=== PATIENT | female | born 1965 | race Caucasian/White ===

== ENCOUNTER 2016-11-17 04:41 | Emergency (ER) | payer OTHER ==
--- NOTE | ~2016-11-17 | CR72 ---
[facility] A Service of [facility] & [facility] RADIOLOGY TEXT RESULTS PATIENT: LILY CREWS LOCATION: [facility] : 65 UNIT #: [id number] AGE: [address]: BENJI REBOLLAR APRN SEX: F ORDER DR: [id number] [facility] [address] [place], [place] [address] [id number] E MR#: [id number] Acc #: [id number] NAME: LILY CREWS. : 1965 SEX: F STUDY DATE/TIME: 11/17/2016 4:12 UNIT: [facility] ROOM: STUDY DESCRIPTION: CR Chest Single View Portable Attending Physician: Benji Rebollar Aprn Ordering Physician: Benji Rebollar Aprn Primary Care Physician: No Primary Care Physician MEDICAL IMAGING REPORT This report is preliminary unless electronic signature is present EXAM AP view of the chest. COMPARISON April 18, 2015 and October 24, 2013. INDICATION 50-year-old female with cough, fever, and sore throat for 3 days. History of asthma. FINDINGS Cardiomediastinal silhouette is within normal limits. No pneumothorax, pleural effusion, or acute airspace disease. Calcified granuloma in the left upper lobe. Bilateral degenerative facet disease lower cervical spine. IMPRESSION No acute radiographic abnormality. Dictated by... Peyman Albert M.D. THIS IS AN ELECTRONICALLY VERIFIED REPORT Peyman Albert M.D. at 11/21/2016 12:49 PM SITA/jose david TD: 11/17/2016 09:10 JOB #: [id number] MEDICAL IMAGING REPORT COPY
[~2016-11-17 04:41] MED LIST: AMOXICILLIN500 M1 PO; CORTISPORI10 ML OTIC OT; FLEXERIL PO; PERCOCET 5-3251 TAB PO; VICODIN 5/500 T1 TAB PO
[2016-11-17 05:06] LABS: BASOPHIL% 0.4 % (0-2.5); EOSINOPHIL# 0.1 X10e3 (0-0.7); EOSINOPHIL% 2.7 % (0.0-7.0); HEMATOCRIT 43.5 % (35.0-45.0); HEMOGLOBIN 14.6 gm/dL (12.0-16.0); LYMPHOCYTE# 1.3 X10e3 (1.0-3.5); LYMPHOCYTE% 31.6 % (17.0-45.0); MEAN CORPUSCULAR HEMOGLOBIN 28.2 PG (28-34); MEAN CORPUSCULAR HGB CONC 33.6 g/dL (30-36); MEAN PLATELET VOLUME 9.9 FL (6.5-11.5); MONOCYTE# 0.4 X10e3 (0-1.0); MONOCYTE% 10.6 % (3.0-12.0); NEUTROPHIL# 2.2 X10e3 (1.5-7.1); NEUTROPHIL% 54.7 % (40-75); PLATELET COUNT 152 X10e3 (140-420); RED BLOOD COUNT 5.18 X10e (3.90-5.30); RED CELL DISTRIBUTION WIDTH 12.5 % (11.0-15.5)
[2016-11-17 05:10] LABS: DIFF IND NO
[2016-11-17 05:15] LABS: INFLUENZA A NEG (NEG)
[2016-11-17 05:16] LABS: INFLUENZA B NEG (NEG)
[2016-11-17 05:52] LABS: BUN/CREATININE RATIO 10.9; CALCIUM SERUM 8.6 mg/dL (8.4-10.2); CREATININE SERUM 1.1 mg/dL (0.6-1.4); GLOM FILT RATE Estimated 55.9 mL/min (>60); POTASSIUM 3.4 mmol/L (3.5-5.1)
[2016-11-17 06:09] LABS: URINE APPEARANCE CLOUDY; URINE BILIRUBIN NEG (NEG); URINE BLOOD TRACE (NEG); URINE COLOR YELLOW; URINE GLUCOSE NEG (NEG); URINE KETONE NEG (NEG); URINE LEUKOCYTE ESTERASE 3+ (NEG); URINE NITRATE NEG (NEG); URINE PROTEIN NEG (NEG); URINE SPECIFIC GRAVITY 1.013 (1.003-1.035)
[2016-11-17 06:11] LABS: CULTURE INDICATED? YES; U HYALINE CASTS AUWI 0-2 /[LPF]; URINE BACTERIA AUWI 1+ (NEGATIVE); URINE SQUAMOUS EPITHELIAL CELL OCC /[HPF]; UWBCS1 AUWI 200-300 (0-5)
== END 2016-11-17 06:25 | disposition home or self-care (01) ==
LOC: CED 04:41
PROVIDERS: Nurse Practitioner Family
DX: N39.0 Urinary tract infection, site not specified (principal); J06.9 Acute upper respiratory infection, unspecified; J45.909 Unspecified asthma, uncomplicated; F17.210 Nicotine dependence, cigarettes, uncomplicated; Z98.51 Tubal ligation status; Z90.710 Acquired absence of both cervix and uterus; Z88.8 Allergy status to other drugs, medicaments and biological substances
CPT/HCPCS: 36415; 71010; 80048; 81003; 83605; 85025; 87040; 87086; 87651; 87804; 96360; 99284